=== PATIENT | female | born 1970 | race Caucasian/White ===

== ENCOUNTER 2020-01-09 06:35 | Day surgery (SDC) | payer OTHER, SELFPAY ==
[2020-01-08 11:48] VITALS: BMI 33.3
[2020-01-09 06:59] VITALS: BP 121/92; PULSE 76; RESP 18; TEMP 37; O2SAT 99
--- NOTE | 2020-01-09 07:00 | ANES.PREANE2 ---
Pre-Anesthetic Assessment Pre-Anesthetic Assessment: Height/Weight: Height 1.65 m Weight 90.718 kg Proposed Procedure: Operation Date: 01/09/20 07:45 Proposed Procedures p Colonoscopy with poss biopsy and poss polypectomy 48752 Z12.11(Not Applicable) - Juan Francisco Hill MD Was Beta Rufino taken within 24 hours: Yes Last Intake: 09:02 Social: Social History: No alcohol and No tobacco Exam: Pre-Anes Outpt Exam: alert, No oriented x 3, clear to auscultation bilaterally and regular rate & rhythm Airway: Submandibular: WNL Cervical ROM: WNL MP: 2 History/ROS: No significant complaints Pulmonary: Pulmonary: None reported CV/HEM: CV/HEM: HTN : : None reported Hepatic: Hepatic: None reported GI: GI: None reported Metabolic: Metabolic: None reported Musc/skel: Musc/skel: None reported Neuropsych: Neuropsych: None reported Anesthetic Plan: ASA status: 2 Anesthesia: MAC Risk of > 500 ml blood loss (7ml/kg in children): No Data Anesthesia Cardiac Studies: No Data to Display
[2020-01-09] MEDS: sodium chloride 0.9% 1,000 ML 30 ML IV (07:11)
[2020-01-09 07:22] LABS: OR HCG Qualitative Urine Negative (Negative)
--- NOTE | 2020-01-09 08:05 | P.HP_ITS ---
Providers/Chief Complaint Primary Care Provider: Kulwant Rueda MD Chief Complaint: colon cancer screening History of Present Illness Shellie Barbosa is a 49 year old female here for screening colonoscopy Review of Systems General: Reports: 10 or more systems reviewed and unremarkable except in HPI and below Medications/Allergies Home Medications Medication Instructions Recorded Confirmed Last Taken Type Potassium 1 tab PO DAILY 12/20/19 01/09/20 01/08/20 History atenolol 25 mg tablet 25 mg PO DAILY 12/20/19 01/09/20 01/09/20 History biotin 1 tab PO DAILY 12/20/19 01/09/20 01/08/20 History cetirizine 10 mg capsule 10 mg PO DAILY 12/20/19 01/09/20 01/08/20 History cholecalciferol (vitamin D3) 25 25 mcg PO DAILY 12/20/19 01/09/20 01/08/20 History mcg (1,000 unit) capsule cyanocobalamin (vitamin B-12) 1,000 mcg PO DAILY 12/20/19 01/09/20 01/08/20 History 1,000 mcg capsule lisinopril 20 1 tab PO BID 12/20/19 01/09/20 01/09/20 History mg-hydrochlorothiazide 12.5 mg tablet magnesium 1 tab PO DAILY 12/20/19 01/09/20 01/08/20 History Allergies Allergy/AdvReac Type Severity Reaction Status Date / Time No Known Allergies Allergy Unverified 12/20/19 09:47 Vital Signs Vitals Signs: Last Vital Signs Temp 98.6 F 01/09/20 06:59 Pulse 76 01/09/20 06:59 Resp 18 01/09/20 06:59 BP 121/92 01/09/20 06:59 Pulse Ox 99 01/09/20 06:59 Weight: Weight last 48 hrs Weight 200 lb Physical Exam Narrative: EXAM NARRATIVE: HEENT: Normocephalic Eye: Sclera /conjunctiva normal Abdomen: Soft to palpation Neurological: Oriented to place person and time Skin: Intact, no lesions appreciated on gross exam A&P Assessment and plan (1) Encounter for screening colonoscopy: The patient is scheduled for colonoscopy under MAC. The procedure risks and benefits, including infection, bleeding and bowel injury, has been explained to the patient, who has consented to the procedure. Information about the prep has been provided to the patient. Status: Acute Coding Level of Care Code Acute Sleeve Separator for Chg Fwd Diagnoses Encounter for screening colonoscopy Z12.11
[2020-01-09 08:15] VITALS: BP 104/70; PULSE 59; RESP 16; TEMP 36.7; O2SAT 100
--- NOTE | 2020-01-09 09:03 | ANE.PACU2 ---
Inpatient post-anesthesia follow up: Airway intact: Yes Vital signs: Temperature 98.1 F Pulse Rate 59 Respiratory Rate 16 Blood Pressure 104/70 Pulse Oximetry 100 Oxygen Delivery Me thod Nasal Cannula Oxygen Flow Rate 3 Fraction of Inspir ed Oxygen Hydration adequate: Yes Nausea and vomiting: No Pain level: 1 Mental status: Baseline
== END 2020-01-09 08:38 | disposition home or self-care (01) ==
PROVIDERS: PCP Family Medicine; Visit Provider Surgery
PROC: 0DJD8ZZ Inspection of Lower Intestinal Tract, Via Natural or Artificial Opening Endoscopic (ICD-10-PCS; CPT 45378; principal; 2020-01-09 07:45)
DX: Z12.11 Encounter for screening for malignant neoplasm of colon (principal); K57.30 Diverticulosis of large intestine without perforation or abscess without bleeding; I10 Essential (primary) hypertension
CPT/HCPCS: 12345; 45378; 84703; J2001; J2704

== ENCOUNTER 2020-01-22 09:33 | Outpatient (CLI) | payer OTHER, SELFPAY ==
--- NOTE | 2020-01-22 09:37 | MM_ITS ---
WS: [id number] Bilateral screening digital mammogram, 01/22/2020 Clinical Data: SCREENING Comparison: 09/16/2017, 05/24/2017, 05/22/2016, 04/23/2015. Findings: The breast parenchymal pattern shows heterogeneous density No spiculated masses or clustered calcific ations are seen. There are no secondary signs of carcinoma. MM/[id number] Impression: 1. Negative bilateral mammogram unchanged. 2. Recommend annual screening mammograms. BIRADS: 1-Negative FOLLOW UP: 1 Year Follow-up The CAD fruit checker was used.
== END 2020-01-22 09:34 | disposition home or self-care (01) ==
LOC: RADSHAW 09:36
PROVIDERS: PCP Family Medicine; Visit Provider Family Medicine
DX: Z12.31 Encounter for screening mammogram for malignant neoplasm of breast (principal)
CPT/HCPCS: 77067

== ENCOUNTER 2020-04-22 12:32 | Outpatient (CLI) | payer OTHER, SELFPAY ==
--- NOTE | 2020-04-22 12:37 | XR_ITS ---
WS: [id number] LEFT KNEE: 3 VIEW(S) TECHNIQUE: AP, oblique(s) and lateral. HISTORY: KNEE PAIN, LEFT COMPARISON: None available. No fracture or dislocation. No joint space narrowing or osteophytes. No joint effusion. No soft tissue abnormality. XR/XR knee LT 3V* [id number] IMPRESSION: Normal LEFT knee.
== END 2020-04-22 12:33 | disposition home or self-care (01) ==
LOC: RAD 12:35
PROVIDERS: PCP Family Medicine; Visit Provider Family Medicine
DX: M25.562 Pain in left knee (principal)
CPT/HCPCS: 73562

== ENCOUNTER → 2021-01-04 11:14 | Outpatient (BNVA) | payer OTHER, SELFPAY | PROVIDERS: PCP Family Medicine; Visit Provider Orthopaedic Surgery | DX: Z01.818 Encounter for other preprocedural examination (principal); Z11.52 Encounter for screening for COVID-19; Z20.822 Contact with and (suspected) exposure to COVID-19 | CPT/HCPCS: 87635 ==

== ENCOUNTER 2021-01-09 09:17 | Day surgery (SDC) | payer OTHER, SELFPAY ==
[2021-01-08 11:20] VITALS: BMI 33.3
[2021-01-09 09:28] VITALS: BP 149/87; PULSE 59; RESP 16; TEMP 36.7; O2SAT 98
[2021-01-09] MEDS: sodium chloride 0.9% 1,000 ML 30 ML IV (09:40)
--- NOTE | 2021-01-09 09:49 | ANES.PREANE2 ---
Pre-Anesthetic Assessment Pre-Anesthetic Assessment: Height/Weight: Height 1.65 m Weight 90.718 kg Temp Pulse Resp BP Pulse Ox 98.1 F 59 L 16 149/87 98 01/09/21 09:28 01/09/21 09:28 01/09/21 09:28 01/09/21 09:28 01/09/21 09:28 Preop Diagnosis: Left medial meniscal tear Proposed Procedure: Operation Date: 01/09/21 10:55 Proposed Procedures p left knee menisectomy 62354 S83.242A(Left) - Rafael Flores MD Was Beta Rufino taken within 24 hours: Yes Was Clonidine taken within 24 hours: N/A Last intake: Intake Last Liquid Date 01/08/21 Last Liquid Time 22:00 Last Solid Date 01/08/21 Last Solid Time 19:00 Social: Social History: No alcohol and No tobacco Exam: Pre-Anes Outpt Exam: alert, oriented x 3, clear to auscultation bilaterally and regular rate & rhythm Airway: Submandibular: WNL Cervical ROM: WNL MP: 2 Dentition: Full CV/HEM: CV/HEM: HTN Metabolic: Metabolic: Morbid obesity Anesthetic Plan: ASA status: 2 Anesthesia: General Risk of > 500 ml blood loss (7ml/kg in children): No Meds/Allergies Current Medications: Current Medications Generic Name Dose Route Start Last Admin Trade Name Freq PRN Reason Stop Dose Admin Sodium Chloride 1,000 mls @ 30 ml s/hr 01/09/21 09:30 01/09/21 09:40 Sodium Chloride 0.9% IV 01/10/21 09:29 30 mls/hr .Q24H JACKELIN Administration PFSH Anesthesia PFSH: Surgical History Status post colonoscopy (01/09/20) repeat in 10 years Female Reproductive History: Date of last menstrual period: 12/25/20 Data Anesthesia Cardiac Studies: No Data to Display
--- NOTE | 2021-01-09 10:25 | W.PM.OPSUD ---
Surgery/Procedure H&P Update DATE OF PROCEDURE: January 09, 2021 DATE H&P PERFORMED: 12/30/20 PREOP DIAGNOSIS: Left medial meniscal tear PLANNED PROCEDURE: Operation Date: 01/09/21 10:55 Proposed Procedures p left knee menisectomy 25744 S83.242A(Left) - Rafael Flores MD
[2021-01-09] MEDS: morphine 4 mg/mL SDV 1 mL 8 MG (11:00)
[2021-01-09 11:24] VITALS: BP 120/75; PULSE 72; RESP 20; TEMP 36.4; O2SAT 100
--- NOTE | 2021-01-09 11:28 | PM.OP ---
Operative Report Date of procedure: January 09, 2021 Pre-op Diagnosis: Left medial meniscal tear Post-op diagnosis: other Post-op Diagnosis: Normal left medial meniscus Grade II chondromalacia medial femoral condyle Post-op Findings: As above Procedure Done: Diagnostic arthroscopy left knee Pathology: none sent Surgeon: Rafael Flores Anesthesia: General Estimated blood loss (mL): 5 Findings: The patient had generalized softening and fissures over the medial femoral condyle but no unstable flaps to suggest debridement. Her medial meniscus was healthy. Her lateral compartment and patellofemoral compartment were pristine. Her central stabilizing ligaments were intact Brief History: Ms. Barbosa is a 50-year-old female with chronic left knee pain and MRI suggesting medial meniscal tearing. He was taken to the operating room for diagnostic arthroscopy to verify pathology and offer potential medial meniscectomy Procedure: The patient was taken to the operating room and given a general anesthesia. She is prepped and draped the supine position with a tourniquet on the left thigh. The knee was infiltrated with 30 cc of 0.5% Marcaine with epi and 4 mg of morphine. A timeout was performed. The knee was entered through a standard inferior medial and inferior lateral portal. The diagnostic portion arthroscopy was performed. Essentially the only abnormal findings identified were chondromalacia over the medial femoral condyle. There were essentially no unstable flaps or fissures to benefit from debridement. The knee was irrigated with saline. Portals were closed with 3-0 Prolene. Sterile dressings were applied. The patient was extubated and taken to the room in stable condition.
[2021-01-09 11:30] VITALS: BP 111/66; PULSE 65; RESP 14; O2SAT 100
[2021-01-09 11:35] VITALS: BP 121/77; PULSE 64; RESP 16; TEMP 36.8; O2SAT 95
[2021-01-09 11:39] VITALS: BP 114/71; PULSE 64; RESP 18; TEMP 36.8; O2SAT 98
[2021-01-09 12:12] VITALS: BP 122/70; PULSE 73; RESP 16; TEMP 36.7; O2SAT 99
--- NOTE | 2021-01-09 14:42 | ANE.PACU2 ---
Inpatient post-anesthesia follow up: Airway intact: Yes Vital signs: Temperature 98.0 F Pulse Rate 73 Respiratory Rate 16 Blood Pressure 122/70 Pulse Oximetry 99 Oxygen Delivery Me thod Room Air Oxygen Flow Rate 6 Fraction of Inspir ed Oxygen Hydration adequate: Yes Nausea and vomiting: No Pain level: 2 Mental status: Baseline
== END 2021-01-09 12:20 | disposition home or self-care (01) ==
PROVIDERS: PCP Family Medicine; Visit Provider Orthopaedic Surgery
PROC: (CPT 29870; principal; 2021-01-09 10:45)
DX: S83.242A Other tear of medial meniscus, current injury, left knee, initial encounter (principal); X50.1XXA Overexertion from prolonged static or awkward postures, initial encounter; Y92.002 Bathroom of unspecified non-institutional (private) residence as the place of occurrence of the external cause; M94.262 Chondromalacia, left knee; I10 Essential (primary) hypertension; E66.01 Morbid (severe) obesity due to excess calories; Z68.33 Body mass index [BMI] 33.0-33.9, adult
CPT/HCPCS: 29870; J0690; J1100; J1885; J2270; J2405; J2704; J3010; J3490; J7030

== ENCOUNTER → 2021-02-11 10:09 | Outpatient (BNVA) | payer OTHER, SELFPAY | PROVIDERS: PCP Family Medicine; Visit Provider Nurse Practitioner Family | DX: Z20.822 Contact with and (suspected) exposure to COVID-19 (principal) | CPT/HCPCS: 87635 ==

== ENCOUNTER 2021-02-15 07:18 | Outpatient (CLI) | payer OTHER, SELFPAY ==
[2021-02-15 07:20] VITALS: BP 124/85; PULSE 72; RESP 18; TEMP 36.6; O2SAT 95; BMI 33.3
[2021-02-15 08:05] VITALS: BP 135/89; PULSE 69; RESP 16; O2SAT 96
[2021-02-15 09:12] VITALS: BP 133/83; PULSE 67; RESP 17; TEMP 36.4
== END 2021-02-15 07:19 | disposition home or self-care (01) ==
LOC: OPS 07:19
PROVIDERS: PCP Family Medicine; Visit Provider Family Medicine
DX: U07.1 COVID-19 (principal)
CPT/HCPCS: 96365

== ENCOUNTER 2022-08-24 13:11 | Outpatient (CLI) | payer OTHER, SELFPAY ==
--- NOTE | 2022-08-24 13:27 | XRR_ITS ---
PROCEDURE INFORMATION: Exam: XR Right Shoulder Exam date and time: 08/24/2022 1:29 PM Age: 52 years old Clinical indication: Pain; Right; Patient HX: Tore RT shoulder up about 4 years ago and has hurt every since; Additional info: Right shoulder pain TECHNIQUE: Imaging protocol: Radiologic exam of the Right shoulder. Views: 2 or more views. COMPARISON: CR XR shoulder RT min 2V* [id number] 04/19/2018 9:19 AM FINDINGS: Bones/joints: Osseous structures are intact. Negative for fracture. Joint spaces are preserved. Soft tissues: Normal. XR/XR shoulder RT min 2V* [id number] IMPRESSION: No acute findings.
== END 2022-08-24 13:12 | disposition home or self-care (01) ==
LOC: RAD 13:14
PROVIDERS: PCP Family Medicine; Visit Provider Family Medicine
DX: M25.511 Pain in right shoulder (principal)
CPT/HCPCS: 73030

== ENCOUNTER → 2022-08-26 08:04 | Outpatient (BNVA) | payer OTHER, SELFPAY | PROVIDERS: PCP Family Medicine; Visit Provider Family Medicine | DX: R07.9 Chest pain, unspecified (principal); S83.242A Other tear of medial meniscus, current injury, left knee, initial encounter; M25.511 Pain in right shoulder; E11.9 Type 2 diabetes mellitus without complications; Z51.81 Encounter for therapeutic drug level monitoring; Z00.00 Encounter for general adult medical examination without abnormal findings; E55.9 Vitamin D deficiency, unspecified; Z13.220 Encounter for screening for lipoid disorders; E53.8 Deficiency of other specified B group vitamins; X58.XXXA Exposure to other specified factors, initial encounter | CPT/HCPCS: 80053; 80061; 82306; 82607; 83036; 85025 ==

== ENCOUNTER 2022-09-25 12:10 | Outpatient (CLI) | payer OTHER, SELFPAY ==
--- NOTE | 2022-09-25 16:00 | MR_ITS ---
WS: [id number] EXAMINATION: MR shoulder RT wo con* [id number] ORDER DATE: 09/25/2022 12:27 PM COMPARISON: None. HISTORY: Right shoulder pain CONTRAST: None. TECHNIQUE: Axial T2 STAR, coronal proton density fat sat, sagittal T2 fat sat, sagittal proton densit y fat sat, axial proton density fat sat, coronal T2 fat sat, and coronal T1 performed. After contrast , axial T1 fat sat, coronal T1 fat sat, and sagittal T1 fat sat were performed. FINDINGS: Mild degenerative arthritis AC joint with mild edema. Slight subacromial spurring. Slight impingement on the distal supraspinatus with mild subacromial narrowing. Subchondral cystic changes at the great er tuberosity. Normal supraspinatus. Normal infraspinatus. Normal teres minor and subscapularis. Normal bone marrow signal in the glenoid. Somewhat diminutive biceps tendon in the bicipital groove. Normal intra-articu lar biceps tendon. Labrum appears grossly intact. MR/MR shoulder RT wo con* [id number] IMPRESSION: 1. Mild degenerative arthritis at the AC joint with mild fluid and edema. Suba cromial spurring with slight impingement on the distal supraspinatus. 2. Rotator cuff is intact. 3. Somewhat diminutive biceps tendon in the bicipital groove appears intact. 4. Intra-articular biceps tendon appears intact. 5. No other acute findings.
== END 2022-09-25 12:11 | disposition home or self-care (01) ==
LOC: RAD 12:15
PROVIDERS: PCP Family Medicine; Visit Provider Family Medicine
DX: M19.011 Primary osteoarthritis, right shoulder (principal)
CPT/HCPCS: 73221

== ENCOUNTER 2023-04-02 10:53 | Emergency (ER) | payer OTHER, SELFPAY ==
[2023-04-02] VITALS (7 sets, daily range): BP systolic 117–149; BP diastolic 58–86; PULSE 76–96; RESP 18; TEMP 37.1; O2SAT 96–99; BMI 33.3
[2023-04-02 11:43] LABS: Basophils # 0.1 10^3/uL (0.0-0.1); Basophils % 0.5 %; Eosinophils # 0.2 10^3/uL (0.0-0.8); Eosinophils % 1.4 %; Hematocrit 39.4 % (36-47); Lymphocytes # 1.5 10^3/uL (0.8-4.8); Lymphocytes % 12.9 %; Mean Corpuscular HGB Conc 32.7 g/dL (30-55); Mean Corpuscular Hemoglobin 28.3 pg (27-33); Mean Corpuscular Volume 86.4 fl (85-98); Mean Platelet Volume 10.2 fL (7.4-10.4); Neutrophils # 8.59 10^3/uL (1.8-7.7); Neutrophils % 75.8 %; Nucleated Red Blood Cells % 0 %; Platelet Count 259 10^3/cmm (157-399); Red Blood Count 4.56 10^6/uL (3.85-5.65); Red Cell Distribution Width 12.6 % (12.1-15.1); White Blood Count 11.33 10^3/uL (3.29-11.43)
[2023-04-02 12:01] LABS: Alanine Aminotransferase 13 U/L (0-33); Albumin Level 4.4 g/dL (3.5-5.2); Alkaline Phosphatase 54 U/L (35-105); Anion Gap 15.1 (5-19); Aspartate Amino Transferase 14 U/L (0-32); Blood Urea Nitrogen 13 mg/dL (6-20); Carbon Dioxide 27 mmol/L (22-29); Chloride 98 mmol/L (98-107); Globulin 3.2 g/dL (1.3-4.6); Glomerular Filtration Rate 65.2 mL/min (90-130); Glucose 224 mg/dL (65-115); Lipase 33 U/L (13-60); Osmolality Calculated 289 mOsm/kg (285-295); Potassium 4.1 mmol/L (3.5-5.1); Sodium 136 mmol/L (136-145); Total Bilirubin 0.5 mg/dL (0.15-1.2); Total Protein 7.6 g/dL (6.6-8.7)
[2023-04-02] MEDS: sodium chloride 0.9% 1,000 ML 999 ML IV (15:31)
[2023-04-02] MEDS: ketorolac 30 mg/mL INJ IVP (15:32)
[2023-04-02 15:39] LABS: Add Urine Microscopic? NO; Charge for UA Resulting for Rev
--- NOTE | 2023-04-02 15:49 | ED_ITS ---
HPI - Abdominal Pain General: Chief Complaint: Abdominal Pain Stated Complaint: left sided abdominal pain Time Seen by Provider: 04/02/23 15:06 Source: patient Mode of arrival: ambulatory Limitations: no limitations History of Present Illness: Patient presents to the emergency department for evaluation treatment of left lower quadrant pain. Patient states that for about a week now she has been having off-and-on pain in the left lower quadrant with severe worsening today. Patient states she originally thought it was just gas but, indicates she does have a history of ovarian cyst. She denies a history of kidney stones. She denies diarrhea, nausea, or vomiting. She has not noticed any fevers. She denies flank pain or mid back pain. She did have pain in her abdomen while she urinated but no dysuria. No signs of hematuria. Patient reports that that being bent over provides her pain relief. Patient has had a colonoscopy in the past. No abnormalities and no diagnoses of diverticulosis. Review of Systems General: Reports: 10 or more systems reviewed and unremarkable except in HPI and below PFSH ED PFSH: Surgical History Status post colonoscopy (01/09/20) repeat in 10 years Family History Sister Chronic kidney disease (CKD) after being removed from dialysis Father Pacemaker Social History Smoking and tobacco status: former smoker Alcohol intake: current Alcohol intake frequency: holidays/special occasions only Substance/Drug Use: never Physical Exam Const: COMMON NORMALS: no acute distress, patient oriented x3 and alert HENMT: COMMON NORMALS: normocephalic, atraumatic, hearing grossly normal bilaterally and moist oral mucous membranes HEAD & SCALP: normocephalic and atraumatic Eye: COMMON NORMALS: Equal, round and reactive pupils present, EOMs intact bilaterally and conjunctivae normal CONJUNCTIVA: Yes conjunctivae normal PUPIL: Yes Equal, round and reactive pupils present Neck/C-Spine: COMMON NORMALS: full ROM and no JVD Lymph: LYMPHATIC: no lymphadenopathy noted Resp: COMMON NORMALS: normal respiratory effort, No retractions, No use of accessory muscles and clear to auscultation bilaterally AUSCULTATION: clear to auscultation bilaterally Cardio: COMMON NORMALS: no JVD, regular rate and regular rhythm RATE: regular rate RHYTHM: regular rhythm GI: OTHER: Left lower quadrant pain. Abdomen is soft. : COMMON NORMALS: Yes no CVA tenderness BLADDER/KIDNEY EXAM: Yes no CVA tenderness Back/Pelvis: COMMON NORMALS: no CVA tenderness, no thoracic nor lumbar tenderness and thoraco-lumbar ROM normal Extremity: COMMON NORMALS: normal to inspection, full ROM and capillary refill normal Neuro: COMMON NORMALS: patient oriented x3 SENSORIUM/ORIENTATION: Yes alert Psych: COMMON NORMALS: mental status grossly normal, Normal thought process present, cooperative, normal affect and activity/motor behavior normal THOUGHT PROCESS: Normal thought process present Skin: COMMON NORMALS: no rashes or lesions noted and no wounds GENERAL SKIN EXAM: no rashes or lesions noted Course Vital Signs: Vital signs: Vital Signs Temperature 98.8 F 04/02/23 11:45 Pulse Rate 86 04/02/23 16:00 Respiratory Rate 18 04/02/23 17:57 Blood Pressure 146/86 04/02/23 16:00 Pulse Oximetry 97 04/02/23 16:00 Oxygen Delivery Me thod Room Air 04/02/23 16:00 MDM - Abdominal Pain Medical Decision Making Initial lab work showed no elevation in white blood cell count and urine had no blood. Because there is usually elevated WBCs with infection and blood in the urine with a kidney stone, we proceeded on with an Ultrasound to look for cysts. However, initial evaluation of the scans did not show torsion or cyst to cause pain that significant. Patient originally refused narcotics for pain. She got toradol but still had pain. Offered pain medication again after US and she agreed. We then proceeded on with a CT scan. Scan showed an area of the descending colon showing signs of diverticulitis. No signs of perforation at this time. We will start treatment with antibiotics to treat diverticulitis. I am also giving antinausea medication and pain medications. She was warned she may still have pain for a couple days. She was given an informational hand out about diverticulitis to look over and return precations specified. She is asked to follow up with here PCP next wednesday for another recheck of her symptoms. Jhonny donato verbalized understanding and agreement to the treatment plan. Differential Diagnosis Likely abdominal pain, calculus of kidney, diverticulitis, gastroenteritis and small bowel obstruction; Unlikely acute appendicitis or endometriosis (ovarian torsion, ovarian cyst) Lab Data 04/02/23 11:30 04/02/23 11:30 Labs/Radiology: Radiology Impressions Abdomen/Pelvis CT 04/02/23 17:37 IMPRESSION: 1. Scattered colonic diverticula. Changes consistent with moderate diverticulitis in the distal descending colon. 2. Incidental/nonacute findings are listed in the report. Laboratory Results WBC 11.33 10^3/uL (3.29-11.43) 04/02/23 11:30 RBC 4.56 10^6/uL (3.85-5.65) 04/02/23 11:30 Hgb 12.90 g/dL (11.27-16.99) 04/02/23 11:30 Hct 39.4 % (36-47) 04/02/23 11:30 MCV 86.4 fl (85-98) 04/02/23 11:30 MCH 28.3 pg (27-33) 04/02/23 11:30 MCHC 32.7 g/dL (30-55) 04/02/23 11:30 RDW 12.6 % (12.1-15.1) 04/02/23 11:30 Plt Count 259 10^3/cmm (157-399) 04/02/23 11:30 MPV 10.2 fL (7.4-10.4) 04/02/23 11:30 Neut % (Auto) 75.8 % 04/02/23 11:30 Lymph % (Auto) 12.9 % 04/02/23 11:30 Burnett % (Auto) 9.0 % 04/02/23 11:30 Eos % (Auto) 1.4 % 04/02/23 11:30 Baso % (Auto) 0.5 % 04/02/23 11:30 Neut # (Auto) 8.59 10^3/uL (1.8-7.7) H 04/02/23 11:30 Lymph # (Auto) 1.5 10^3/uL (0.8-4.8) 04/02/23 11:30 Burnett # (Auto) 1.0 10^3/uL (0.2-0.9) H 04/02/23 11:30 Eos # (Auto) 0.2 10^3/uL (0.0-0.8) 04/02/23 11:30 Baso # (Auto) 0.1 10^3/uL (0.0-0.1) 04/02/23 11:30 Nucleated RBC % (auto) 0 % 04/02/23 11:30 Nucleated RBCs # 0.0 /100WBC 04/02/23 11:30 Sodium 136 mmol/L (136-145) 04/02/23 11:30 Potassium 4.1 mmol/L (3.5-5.1) 04/02/23 11:30 Chloride 98 mmol/L (98-107) 04/02/23 11:30 Carbon Dioxide 27 mmol/L (22-29) 04/02/23 11:30 Anion Gap 15.1 (5-19) 04/02/23 11:30 BUN 13 mg/dL (6-20) 04/02/23 11:30 Creatinine 0.9 mg/dL (0.5-0.9) 04/02/23 11:30 GFR Calculation 65.2 mL/min (90-130) L 04/02/23 11:30 Glucose 224 mg/dL (65-115) H 04/02/23 11:30 Calculated Osmolality 289 mOsm/kg (285-295) 04/02/23 11:30 Calcium 10.0 mg/dL (8.5-10.5) 04/02/23 11:30 Total Bilirubin 0.5 mg/dL (0.15-1.2) 04/02/23 11:30 AST 14 U/L (0-32) 04/02/23 11:30 ALT 13 U/L (0-33) 04/02/23 11:30 Alkaline Phosphatase 54 U/L (35-105) 04/02/23 11:30 Total Protein 7.6 g/dL (6.6-8.7) 04/02/23 11:30 Albumin 4.4 g/dL (3.5-5.2) 04/02/23 11:30 Globulin 3.2 g/dL (1.3-4.6) 04/02/23 11:30 Lipase 33 U/L (13-60) 04/02/23 11:30 HCG, Qual Negative (Negative) 04/02/23 14:45 Urine Color Yellow (Yellow) 04/02/23 14:45 Urine Appearance Clear (CLEAR) 04/02/23 14:45 Urine pH 5 (5-7) 04/02/23 14:45 Ur Specific [place] 1.015 (1.005-1.030) 04/02/23 14:45 Urine Protein Neg (Negative) 04/02/23 14:45 Urine Glucose (UA) 1+ (Normal) H 04/02/23 14:45 Urine Ketones Negative (Negative) 04/02/23 14:45 Urine Blood Neg (Negative) 04/02/23 14:45 Urine Nitrate Negative (Negative) 04/02/23 14:45 Urine Bilirubin Neg (Negative) 04/02/23 14:45 Urine Urobilinogen Norm mg/dL (Negative) 04/02/23 14:45 Ur Leukocyte Esterase Negative (Negative) 04/02/23 14:45 All radiology interpretation(s) finalized by discharge Discharge Plan Discharge Patient Disposition: Home Clinical Impression: Diverticulitis Condition: Stable Prescriptions: New ondansetron 4 mg tablet,disintegrating 4 mg PO Q8H 5 Days Qty: 15 0RF ciprofloxacin HCl 500 mg tablet 500 mg PO Q12H Qty: 14 0RF metronidazole 500 mg tablet 500 mg PO Q8H 7 Days Qty: 21 0RF No Action cetirizine 10 mg capsule 10 mg PO QAM potassium gluconate 595 mg (99 mg) Tablet 595 mg PO QAM biotin 2,500 mcg Capsule 2,500 mcg PO DAILY magnesium oxide 400 mg magnesium Tablet 400 mg PO QAM Beet Root 1 tab PO DAILY Himalaya Organic Arjuna 1 tab PO DAILY Hormone Balance 1 tab PO BID lisinopril-hydrochlorothiazide 20-12.5 mg tablet 1 tab PO BID atenolol 25 mg tablet 25 mg PO QAM Vitamin B-12 500 mcg tablet 500 mcg PO QAM Discharge Orders: Discharge ED (Routine); Ordered 04/02/23 Ordered By: Macy Howard Referrals: Kulwant Rueda MD [Primary Care Provider] - Discharge Diet: Advance as tolerated Discharge Activity: Increase activity as tolerated Patient Instructions: Diverticulitis (ED), Opioid Safety Activity Restrictions/Additional Instructions: Labs today are stable. you had no elevated white blood cell count and no blood/infection in your urine. We then checked for an ovarian cyst but initial reads showed no abnormalities. Because you were still in such pain, we did a CT scan and found your distal colon showed signs of diverticulitis without perforation. We will treat with antibiotics, antinausea medication and pain medication. You may still experience pain for a couple days until the antibiotics begin to work. Follow up with your PCP at the end of next week. However, if you develop fever, vomiting without ability to drink fluids of take your medications, develop bloody stools or have severe worsening of pain acutely.... come back to the ER. Coding Level of Care Code ED Cork Insulator for Josesito Dempsey
[2023-04-02 16:00] LABS: Bilirubin Urine Neg (Negative); Blood Urine Neg (Negative); Glucose Urine UA 1+ (Normal); HCG Qualitative Urine. Negative (Negative); Ketones Urine Negative (Negative); Leukocyte Esterase Urine Negative (Negative); Nitrate Urine Negative (Negative); Protein Urine Neg (Negative); Specific Gravity, Urine 1.015 (1.005-1.030); Urine Appearance Clear (CLEAR); Urine Color Yellow (Yellow); Urobilinogen Urine Norm (Negative); pH Urine 5 (5-7)
--- NOTE | 2023-04-02 16:02 | USR_ITS ---
PROCEDURE INFORMATION: Exam: US Pelvis, Transvaginal Exam date and time: 04/02/2023 5:02 PM Age: 53 years old Clinical indication: Pelvic pain; Additional info: Llq pain, HX of cysts, no wbc, ua neg for blood or bacteria TECHNIQUE: Imaging protocol: Real-time transvaginal pelvic ultrasound with image documentation. Transvaginal imaging was used for better evaluation of the endometrium, adnexa, and/or cervix. COMPARISON: No relevant prior studies available. FINDINGS: Uterus: The uterus measures 8.1 x 4.9 x 6.3 cm. No myometrial abnormality. The endometrium is unremarkable. Endometrium measures 3.1 mm. Cervix: Single Nabothian cyst in the cervix. Right ovary/adnexa: The right ovary is not definitely visualized. No abnormal right adnexal masses. Left ovary/adnexa: The left ovary is unremarkable. The left ovary measures 2.7 x 2.2 x 1.8 cm. Normal arterial and venous waveforms on Doppler imaging in the left ovary. No abnormal left adnexal masses. Intraperitoneal space: No free fluid in the pelvis. US/US transvaginal [id number] IMPRESSION: The right ovary is not definitely visualized. No abnormal right adnexal masses. No other acute abnormality in the pelvis.
--- NOTE | 2023-04-02 17:37 | CTR_ITS ---
PROCEDURE INFORMATION: Exam: CT Abdomen And Pelvis With Contrast Exam date and time: 04/02/2023 5:44 PM Age: 53 years old Clinical indication: Abdominal pain; Localized; Left lower quadrant (llq); Patient HX: C/O llq pain; Additional info: Llq pain, no obvious lab findings. US neg for torsion or cyst TECHNIQUE: Imaging protocol: Computed tomography of the abdomen and pelvis with contrast. Sagittal and coronal reformatted images were created and reviewed. Radiation optimization: All CT scans at this facility use at least one of these dose optimization techniques: automated exposure control; mA and/or kV adjustment per patient size (includes targeted exams where dose is matched to clinical indication); or iterative reconstruction. Contrast material: OMNI 350; Contrast volume: 100 ml; Contrast route: INTRAVENOUS (IV); REPORTING DATA: Count of CT and Cardiac NM exams in prior 12 months: This patient has received 0 known CTs and 0 known cardiac nuclear medicine studies in the 12 months prior to the current study. COMPARISON: US pelvic complete* [id number] 04/02/2023 5:02 PM RADIATION DOSE METRICS: Total DLP (mGy-cm): 927.58 FINDINGS: Lungs: Dependent atelectasis in the visualized lungs. Calcified granulomas in the medial left lower lobe. Pleural spaces: No pleural effusion. Heart: Visualized cardiac chambers are unremarkable. Liver: Single calcified granuloma in the liver. Gallbladder and bile ducts: Patient has had a previous cholecystectomy. Dilatation of the biliary ducts, not unexpected in a patient who has had a prior cholecystectomy. Pancreas: The pancreas is unremarkable. No pancreatic ductal dilatation. Spleen: The spleen is unremarkable. Adrenal glands: The right and left adrenal glands are unremarkable. Kidneys and ureters: The right and left kidneys are unremarkable. The right and left ureters are unremarkable. Stomach and bowel: No acute abnormality in the stomach. No acute abnormality in the small bowel. Few small enteroliths in the distal small bowel. Scattered diverticula throughout the entire colon. Moderate wall thickening of the distal descending colon with surrounding pericolonic inflammatory change and fluid. Appendix: Appendix not definitely visualized. No inflammatory changes in the pericecal region however. Intraperitoneal space: No free intraperitoneal air. No ascites. No loculated fluid collections to suggest an abscess. Vasculature: Mild atherosclerotic changes in the visualized arteries. No evidence for aortic aneurysm or aortic dissection. Hepatic veins, portal veins, splenic vein, and SMV are patent. Lymph nodes: No lymphadenopathy. Urinary bladder: Unremarkable as visualized. Reproductive: The uterus is unremarkable. The right and left ovaries are unremarkable. Bones/joints: No acute fracture. Soft tissues: No acute abnormality in the extra-abdominal soft tissues. CT/CT abdomen pelvis w con* [id number] IMPRESSION: 1. Scattered colonic diverticula. Changes consistent with moderate diverticulitis in the distal descending colon. 2. Incidental/nonacute findings are listed in the report.
[2023-04-02] MEDS: iohexol 350 mg/mL 500 mL Btl (per mL) IV (17:47)
[2023-04-02] MEDS: metoclopramide 5 mg/mL SDV 2 mL 10 MG IVP (17:57)
[2023-04-02] MEDS: morphine 4 mg/mL SDV 1 mL IVP (17:57)
[2023-04-02] MEDS: ciprofloxacin 500 mg Tablet PO (18:37)
[2023-04-02] MEDS: metroNIDAZOLE 500 MG Tablet PO (18:37)
== END 2023-04-02 18:45 | disposition home or self-care (01) ==
PROVIDERS: Emergency Medicine; Emergency Provider Physician Assistant; PCP Family Medicine
DX: K57.92 Diverticulitis of intestine, part unspecified, without perforation or abscess without bleeding (principal); Z87.891 Personal history of nicotine dependence
CPT/HCPCS: 36415; 74177; 76830; 80053; 81003; 81025; 83690; 85025; 96361; 96374; 96375; 99285; J1885; J2270; J2765; J7030; Q9967

== ENCOUNTER 2023-05-05 07:26 | Outpatient (CLI) | payer OTHER, SELFPAY ==
[2023-05-05 07:42] VITALS: BMI 32.3
--- NOTE | 2023-05-05 07:44 | ECG_ITS ---
[facility] Test Date: 2023-05-05 Pat Name: Shellie Barbosa Department: Room: Gender: Female Vp Lab: : 1970 Requested By: Kulwant Germain Order Number: [id number] Jansen MD: Gudelia Curtis M.D. Interpretive Statements Name of study: Lexiscan sestamibi stress test Indication: Chest pain PROCEDURE: At the baseline, the blood pressure was 114/89 mm Hg with a heart rate of 58 bpm. The electrocardiogram showed sinus bradycardia. Non specific T wave changes. ??? The Lexiscan was infused over a period of 20 seconds. A total of 0.4 milligrams of Lexiscan was infused. The stress phase was continued for a total of 5 minutes. Heart rate at the end of the stress phase was 79 bpm with a blood pressure of 121/85 mm Hg. The EKG at the peak infusion revealed no significant ST-T wave changes.. ??? Sestamibi was injected 20 seconds after the Lexiscan infusion. ??? Blood pressure at the end of the recovery phase was 123/84 mm Hg with a heart rate of 77 beats per minute. ??? CONCLUSION: 1. No significant EKG changes with the LexiScan infusion. 2. No LexiScan induced chest pain or cardiac arrhythmia. 3. Normal blood pressure and heart rate response. 4. Sestamibi/sestamibi perfusion scan pending; see separate report. Electronically Signed On 05-17-2023 13:54:02 CHARGE ENTRY by Gudelia Curtis M.D. [id number]
--- NOTE | 2023-05-05 07:45 | NMCV_ITS ---
NM quentin perf SPECT r/s* [id number] Shellie Barbosa Age: 53 Gender: F : 1970 Exam Date: 05/05/2023 08:42 Ordering Phys: Kulwnat Rueda MD Technologist: RYAN Oates Exam Location: [facility] Indications: CHEST PAIN STRESS TEST [facility] IMAGE PROTOCOL Rest/Stress 1 Lexiscan Day Radiopharmaceutical Dose (mCi) Administration Site Administered by Rest: Tc-99m 10.8 IV RYAN Ma Sestamibi Stress:Tc-99m 32.1 IV RYAN Ma Sestamibi Rest: 05-May-2023 60 Discovery 630 Stress: 05-May-2023 30 Discovery 630 0.4mg Lexiscan. Images obtained in supine and prone position. SPECT RESULTS Technical Quality: Excellent Raw Data Analysis: Normal Image Corrections: No attenuation or motion correction applied Summed Stress Score: 0 Summed Rest Score: 0 Summed Difference Score: 0 PERFUSION FINDINGS SPECT images demonstrate homogeneous tracer distribution throughout the myocardium. FUNCTIONAL RESULTS (calculated via Gated SPECT) Stress Image LV EF (%): 72 Stress EDV (mL):65 TID: 1.03 Stress ESV (mL):18 FUNCTIONAL FINDINGS: The left ventricle is normal in size. Transient Ischemia Dilatation of 1. The left ventricular ejection fraction is normal with a value of 72%. There is normal left ventricular wall thickening. IMPRESSIONS 1. Myocardial perfusion imaging is normal. 2. Overall left ventricular systolic function is normal without regional wall motion abnormalities, LVEF=72%. 3. EKG portion of the study will be reported separately. 4. Scan indicates low risk for cardiac events. Gudelia Curtis MD (Electronically Signed) Final Date: 05 May 2023 16:05 S
[2023-05-05] MEDS: regadenoson 0.4 Mg/5 ml Syringe IVP (09:32)
[2023-05-05 11:37] VITALS: BP 144/68; PULSE 72
== END 2023-05-05 07:27 | disposition home or self-care (01) ==
LOC: CDL 07:29
PROVIDERS: PCP Family Medicine; Visit Provider Family Medicine
DX: R07.9 Chest pain, unspecified (principal)
CPT/HCPCS: 36415; 78452; 93017; 96374; A9500; J2785

== ENCOUNTER 2023-05-18 06:35 | Outpatient (CLI) | payer OTHER, SELFPAY ==
[2023-05-18] MEDS: iohexol 350 mg/mL 500 mL Btl (per mL) IV (07:20)
--- NOTE | 2023-05-18 07:30 | CT_ITS ---
WS: [id number] CT ABDOMEN AND PELVIS WITH CONTRAST HISTORY: Persistent LLQ pain after diverticulitis TECHNIQUE: Imaging performed of the abdomen and pelvis with IV contrast. Single phase imaging of the abdomen. Coronal and sagittal reformats are submitted. All CT scans at [facility] use at [address] one of these dose optimization techniques: automated exposure control; mA and/or kV adjustment per patient size (includes targeted exams where dose is matched to clinical indication); or iterative re construction. IV CONTRAST: Omnipaque 350; 100 mL IV. Oral contrast: No DLP: 588.26 mGy.cm COMPARISON: 04/02/2023 Lower thorax: Lung bases are clear. Heart is normal size. Small hiatal hernia. Liver/biliary system: Mild hepatic steatosis along the falciform ligament. Otherwise negative. No giovanny e duct dilatation. No mass. Gallbladder: Prior cholecystectomy. Pancreas: Normal size pancreas and pancreatic duct. No adjacent inflammation. Spleen: Normal size spleen. No mass or infarct. Adrenal glands: Normal. Right kidney: Normal. Left kidney: Normal. Aorta: Normal. Lymphadenopathy: LEFT distal paraesophageal lymph node at 14 mm unchanged since 2016. No adenopathy. Free fluid: None. GI tract: Nondistended stomach. No small bowel obstruction. Moderate diffuse constipation. Appendix i s not visualized. No secondary findings of appendicitis. Pericolonic inflammation in the descending a nd sigmoid colon described on the prior study is significantly improved. There is still mild wall thi ckening and slight narrowing of the lumen involving the proximal sigmoid. There is an adjacent large diverticulum measuring 1.5 cm at this location. Abdominal wall: Unremarkable abdominal wall. No hernia. Pelvis: No free fluid or adenopathy within the pelvis. Bones: Unremarkable. IMPRESSION: 1. Significant improvement in the acute diverticulitis described on 04/02/2023. 2. Mild luminal narrowing and submucosal thickening remains in the proximal sigmoid with a large adj acent diverticulum. Significant improvement since the prior study. 3. No abscess or adenopathy or free fluid. 4. Prior cholecystectomy.
== END 2023-05-18 06:36 | disposition home or self-care (01) ==
LOC: RAD 06:35
PROVIDERS: PCP Family Medicine; Visit Provider Family Medicine
DX: K57.32 Diverticulitis of large intestine without perforation or abscess without bleeding (principal); R10.32 Left lower quadrant pain; K57.30 Diverticulosis of large intestine without perforation or abscess without bleeding
CPT/HCPCS: 74177; Q9967

== ENCOUNTER → 2023-08-11 13:02 | Outpatient (BNVA) | payer OTHER, SELFPAY | PROVIDERS: PCP Family Medicine; Visit Provider Family Medicine | DX: E03.9 Hypothyroidism, unspecified (principal); E11.9 Type 2 diabetes mellitus without complications; M25.50 Pain in unspecified joint; Z51.81 Encounter for therapeutic drug level monitoring | CPT/HCPCS: 80053; 83036; 84439; 84443; 85025; 85651; 86038; 86141 ==

== ENCOUNTER 2023-12-30 12:15 | Outpatient (CLI) | payer OTHER, SELFPAY ==
--- NOTE | 2023-12-30 12:15 | MR_ITS ---
WS: [id number] MRI LEFT KNEE NONCONTRAST TECHNIQUE: Axial PD, coronal PD fat sat, coronal PD, sagittal PD, and sagittal PD fat-sat images obta ined. CLINICAL INFORMATION: left knee pain after climbing up some rocks COMPARISON: None. FINDINGS: Distal quadriceps and patellar tendons are intact. Normal ACL and PCL. Mild chondromalacia patella. M edial and lateral collateral ligaments are intact. Fibular head appears normal. Normal popliteal omega a. Small varicosities in the popliteal fossa. Small tear involving the posterior horn medial meniscus extending to the articular surface. Medial an d lateral meniscus are otherwise intact. Moderate chondromalacia medial joint compartment with a small amount of subchondral edema in the femo ral condyle. No other acute findings. MR/MR knee LT wo con* [id number] IMPRESSION: 1. ACL and PCL are intact. 2. Small tear involving the posterior horn medial meniscus extending to articu lar surface. 3. Mild chondromalacia patella. 4. Moderate chondromalacia medial joint compartment with a small amount of sub chondral edema in the femoral condyle. Outbridge grading: grade IV: full-thickness cartilage loss with underlying bone reactive changes
== END 2023-12-30 12:16 | disposition home or self-care (01) ==
PROVIDERS: PCP Family Medicine; Visit Provider Clinical Nurse Specialist Adult Health
DX: S83.242A Other tear of medial meniscus, current injury, left knee, initial encounter (principal); M25.562 Pain in left knee; M22.42 Chondromalacia patellae, left knee; Y99.9 Unspecified external cause status
CPT/HCPCS: 73721

== ENCOUNTER → 2024-01-04 09:22 | Outpatient (BNVA) | payer OTHER, SELFPAY | PROVIDERS: PCP Family Medicine; Visit Provider Nurse Practitioner | DX: M17.12 Unilateral primary osteoarthritis, left knee; S83.232A Complex tear of medial meniscus, current injury, left knee, initial encounter; X50.9XXA Other and unspecified overexertion or strenuous movements or postures, initial encounter | CPT/HCPCS: 73560; 73565 ==

== ENCOUNTER 2024-01-20 16:45 | Outpatient (CLI) | payer OTHER, SELFPAY ==
[2024-01-20 17:58] LABS: Hematocrit 41.6 % (36-47); Mean Corpuscular HGB Conc 33.4 g/dL (30-55); Mean Corpuscular Volume 83.7 fl (85-98); Mean Platelet Volume 10.7 fL (7.4-10.4); Platelet Count 274 10^3/cmm (157-399); Red Blood Count 4.97 10^6/uL (3.85-5.65); Red Cell Distribution Width 13.3 % (12.1-15.1); White Blood Count 6.76 10^3/uL (3.29-11.43)
[2024-01-20 18:50] LABS: Anion Gap 16.7 (5-19); Blood Urea Nitrogen 14 mg/dL (6-20); Calcium 10.2 mg/dL (8.5-10.5); Carbon Dioxide 27 mmol/L (22-29); Chloride 100 mmol/L (98-107); Glomerular Filtration Rate 86.9 mL/min (90-130); Glucose 154 mg/dL (65-115); Osmolality Calculated 294 mOsm/kg (285-295); Potassium 3.7 mmol/L (3.5-5.1); Sodium 140 mmol/L (136-145)
== END 2024-01-20 16:46 | disposition home or self-care (01) ==
LOC: LAB 16:56
PROVIDERS: PCP Family Medicine
DX: K57.92 Diverticulitis of intestine, part unspecified, without perforation or abscess without bleeding (principal)
CPT/HCPCS: 36415; 80048; 85027

== ENCOUNTER → 2024-02-09 10:45 | Outpatient (BNVA) | payer OTHER, SELFPAY | PROVIDERS: PCP Family Medicine; Visit Provider Nurse Practitioner | DX: S83.249A Other tear of medial meniscus, current injury, unspecified knee, initial encounter (principal); M17.12 Unilateral primary osteoarthritis, left knee; X58.XXXA Exposure to other specified factors, initial encounter | CPT/HCPCS: 36415; 80053; 81003; 81015; 83036; 85025 ==

== ENCOUNTER → 2024-04-12 10:55 | Outpatient (BNVA) | payer OTHER, SELFPAY | PROVIDERS: PCP Family Medicine; Visit Provider Specialist | DX: Z01.818 Encounter for other preprocedural examination (principal); S83.232D Complex tear of medial meniscus, current injury, left knee, subsequent encounter; X58.XXXD Exposure to other specified factors, subsequent encounter; M17.12 Unilateral primary osteoarthritis, left knee | CPT/HCPCS: 36415; 80053; 83036; 85025 ==

== ENCOUNTER 2024-04-18 05:45 | Day surgery (SDC) | payer OTHER, SELFPAY ==
[2024-04-18] VITALS (10 sets, daily range): BP systolic 92–162; BP diastolic 48–73; PULSE 60–79; RESP 14–18; TEMP 36.2–36.4; O2SAT 91–99
[2024-04-18] MEDS: sodium chloride 0.9% 1,000 ML 30 ML IV (06:22)
[2024-04-18] MEDS: acetaminophen 1,000 MG/100 ML PIGGYBACK 400 MG IV (06:24)
[2024-04-18] MEDS: CELEcoxib 200 mg Capsule 400 MG PO (06:26)
[2024-04-18] MEDS: gabapentin 300 mg Capsule PO (06:26)
[2024-04-18 06:32] LABS: Glucose Point of Care 161 mg/dL (70-110)
--- NOTE | 2024-04-18 06:42 | ANES.PREANE2 ---
Pre-Anesthetic Assessment Height/Weight: Height 1.65 m Weight 88.904 kg Temp Pulse Resp BP Pulse Ox O2 Del Method 97.1 F L 70 16 162/73 97 Room Air 04/18/24 06:09 04/18/24 06:09 04/18/24 06:09 04/18/24 06:09 04/18/24 06:09 04/18/24 06:09 Operation Date: 04/18/24 07:00 Proposed Procedures p Knee Arthroscopy Knee Arthroscopy w/ Medial Menisectomy(Left) - Avelina Verdin MD s Debridement Lower Extremity(Left) - Avelina Verdin MD Familial anesthetic complications: None Was Beta Rufino taken within 24 hours: Yes Was Clonidine taken within 24 hours: N/A Last intake: Intake Last Liquid Date 04/17/24 Last Liquid Time 17:30 Last Solid Date 04/17/24 Last Solid Time 17:30 Social No alcohol and No tobacco Exam alert, oriented x 3, clear to auscultation bilaterally and regular rate & rhythm Airway Mallampati: Class II Dentition: full CV/HEM Hypertension GI Gastroesophageal Reflux Disease Metabolic Diabetes Mellitus Anesthetic Plan ASA status: 2 Anesthesia: General Risk of > 500 ml blood loss (7ml/kg in children): No Medications/Allergies Home Medications Medication Instructions Recorded Confirmed Last Taken Type cetirizine 10 mg capsule 10 mg PO QAM 12/20/19 04/18/24 04/17/24 History biotin 2,500 mcg capsule 2,500 mcg PO DAILY 04/02/23 04/18/24 04/17/24 History magnesium oxide 400 mg PO QAM 04/02/23 04/18/24 04/17/24 History potassium gluconate 595 mg (99 mg) 595 mg PO QAM 04/02/23 04/18/24 04/17/24 History tablet omeprazole 40 mg capsule,delayed 40 mg PO DAILY #90 caps 04/09/23 04/18/24 04/17/24 Rx release atenolol 25 mg tablet See Rx Instructions .Route 06/17/23 04/18/24 04/17/24 Rx .COMPLEX #90 tabs lisinopril 20 1 tab PO BID #180 tabs 06/17/23 04/18/24 04/17/24 Rx mg-hydrochlorothiazide 12.5 mg tablet dicyclomine 10 mg capsule 10 mg PO TID PRN spasms #30 caps 10/14/23 04/18/24 Unknown Rx celecoxib 100 mg capsule (Celebrex) 100 mg PO DAILY #90 caps 01/04/24 04/18/24 Unknown Rx blood-glucose meter,continuous #1 ea 03/21/24 04/18/24 Unknown Rx (Dexcom G6 Diesel Mechanic Apprentice) blood-glucose sensor (Dexcom G6 #3 ea 03/21/24 04/18/24 Unknown Rx Sensor device) blood-glucose transmitter (Dexcom #1 ea 03/21/24 04/18/24 Unknown Rx G6 Transmitter device) semaglutide 0.25 mg or 0.5 mg (2 0.5 mg (0.736 mL) SUBCUT Q7D #3 mL 03/21/24 04/18/24 04/07/24 Rx mg/3 mL) subcutaneous pen injector (Ozempic) blood-glucose meter,continuous #1 ea 04/13/24 04/18/24 Unknown Rx (Dexcom G7 Diesel Mechanic Apprentice) blood-glucose sensor (Dexcom G7 #1 ea 04/13/24 04/18/24 Unknown Rx Sensor device) Allergies Allergy/AdvReac Type Severity Reaction Status Date / Time No Known Allergies Allergy Verified 04/17/24 10:59 Current Medications Generic Name Dose Route Start Last Admin Trade Name Freq PRN Reason Stop Dose Admin Sodium Chloride 1,000 mls @ 30 mls/hr 04/18/24 06:00 04/18/24 06:22 Sodium Chloride 0.9% IV 04/19/24 05:59 30 mls/hr .Q24H JACKELIN Administration PFSH Anesthesia Medical History Diabetes mellitus Primary osteoarthritis of left knee Hypertension Surgical History History of left knee surgery Left meniscus - 01/09/21 History of cholecystectomy Status post colonoscopy (01/09/20) repeat in 10 years Family History Sister Chronic kidney disease (CKD) after being removed from dialysis Father Postsurgical cardiac pacemaker in situ Mother Lupus (systemic lupus erythematosus) Social History Smoking and tobacco/nicotine status: never used tobacco/nicotine Alcohol intake: current Alcohol intake frequency: holidays/special occasions only Substance/Drug Use: never Data Anesthesia Cardiac Studies: Sestamibi Stress Test (Cardiology) 05/05/23
--- NOTE | 2024-04-18 06:59 | W.PM.OPSUD ---
Surgery/Procedure H&P Update DATE OF PROCEDURE: April 18, 2024 DATE H&P PERFORMED: 04/12/24 H&P UPDATE INFORMATION: I have reviewed H&P completed within last 30 days, I have examined patient prior to procedure and H&P is in [facility] EMR on date indicated PLANNED PROCEDURE: Operation Date: 04/18/24 07:00 Proposed Procedures p Knee Arthroscopy Knee Arthroscopy w/ Medial Menisectomy(Left) - Avelina Verdin MD s Debridement Lower Extremity(Left) - Avelina Verdin MD Related Problem List Diagnoses (1) Tear of medial meniscus of left knee: Qualifiers: Tear current or old: current Encounter type: subsequent encounter Meniscus tear of knee type: complex Qualified Code(s): S83.232D - Complex tear of medial meniscus, current injury, left knee, subsequent encounter (2) Primary osteoarthritis of left knee:
[2024-04-18] MEDS: ceFAZolin 2,000 mg SDV 2000 MG IVP (07:03)
[2024-04-18] MEDS: morphine 4 mg/mL SDV 1 mL 8 MG XX (07:45)
[2024-04-18] MEDS: ROPivacaine 0.5% SDV 30 mL 150 MG INJECTION (07:45)
--- NOTE | 2024-04-18 08:30 | P.OP_ITS ---
Operative Report Date of procedure: April 18, 2024 Pre-op diagnosis: Left knee medial meniscal tear with degenerative osteoarthritis Post-op diagnosis: Left knee medial and lateral meniscal tears with degenerative osteoarthritis, mild Post-op findings: Inner rim tearing of the medial and lateral meniscus. Osteoarthritis with chondromalacia of the medial femoral condyle and the lateral tibial plateau. Adhesions secondary to previous arthroscopic surgery Procedure done: Left knee arthroscopy with partial medial and lateral meniscectomies, debridement of synovium and adhesions Implants: None Specimens removed/disposition: Meniscal and synovial shavings, disposed of Surgeon: Avelina Verdin MD Vulcanized Fiber Unit Operator: None Anesthesia: General (Intubated, ASA 2) Estimated blood loss (mL): 2 Tourniquet time (min): 27 (At 250 mmHg) IV fluids (mL): 800 Urine output (mL): 0 (No Horner) Complications: None Findings: Inner rim tearing of both the medial and lateral meniscus. Diffuse degenerative changes with chondromalacia. Adhesions from prior knee arthroscopy. Disposition: PACU (Then return to same-day surgery for discharge to home) Brief History: This 54-year-old woman presented to the office with complaints of right knee pain. Her date of injury was November 2023. She continued to have pain in her knee and rated at a 5 of 10. She wore a brace, but that helped with the swelling and not with the pain. She also did a home exercise program. After discussion, the patient wished to proceed with arthroscopic knee surgery. Risks and complications of the surgery were explained to her. Questions were answered and consents were signed in the office. She was scheduled for the above procedure. Procedure: Patient was brought to the operating theater and after undergoing adequate spinal anesthesia, the patient's left lower extremity was prepped and draped in usual fashion utilizing DuraPrep. A tourniquet was placed high on the leg prior to prepping and draping. The tourniquet was elevated prior to commencement of the surgical procedure to 250 mmHg. Total tourniquet time was 27 minutes. Elevation followed prepping and exsanguination. Prior to commencement of the surgical procedure, a surgical pause was performed. At the time of the surgical pause, we identified the site and side of surgery. We also confirmed the patient's identity and appropriate and timely administration of preoperative antibiotics. Preoperative surgical markings were also visualized at this time. Standard arthroscopic portals were utilized including superolateral, inferomedial, and inferolateral portals. The examination commenced in the suprapatellar pouch area where the patient was noted to have minimal changes on the undersurface of the patella. The arthroscope was then passed in the medial compartment where there was noted to be chondromalacia of the medial femoral condyle as well as inner rim tearing and thinning of the medial meniscus. The arthroscope was then passed across the notch area where anterior cruciate ligament was visualized and found to be intact. The scope was passed into the lateral compartment with the knee in a [id number] position. Lateral meniscus was noted to have inner rim tearing. Also, there was chondromalacia of the tibial plateau. These were addressed with a heat wand. Once lateral meniscus had been thus prepared it was palpated and found to be intact and not displaceable into the knee joint. Scope was then returned to the medial compartment where the medial meniscus was addressed similarly with the heat wand on both the anterior horn and posterior medial corner. The meniscus was palpated and found to be not displaceable into the knee joint. Debridement of synovium and adhesions from the prior arthroscopic procedure were debrided both anteriorly and in the suprapatellar pouch area. The arthroscope was then returned to the patellofemoral joint which was reevaluated. There was no significant chondromalacia. The scope was passed back through the knee compartments to evaluate for other abnormalities. Finding none, attention was directed to closure. The knee was copiously irrigated and suctioned dry. Following this, each portal was closed with a simple suture followed by Dermabond and Tegaderm. Additionally, the knee was injected with 20 mL of half percent ropivacaine and 8 mg of morphine. Additional 10 mL of ropivacaine was placed about the portals. Sterile dressing was placed consisting of the Tegaderm followed by the Grupo wrap. Patient was returned to Recovery Room in satisfactory condition where he will be discharged home to follow-up with me in the office as scheduled. There were no complications and no specimens. Related Problem List Diagnoses (1) Tear of medial meniscus of left knee: (2) Tear of lateral meniscus of left knee: (3) Primary osteoarthritis of left knee:
[2024-04-18] MEDS: HYDROcodone-acetaminophen 5-325 mg Tablet 1 TAB PO (09:12)
[2024-04-18 09:36] LABS: OR HCG Qualitative Urine Negative (Negative)
--- NOTE | 2024-04-18 10:10 | ANE.PACU2 ---
Inpatient post-anesthesia follow up: Airway intact: Yes Vital signs: Temperature 97.5 F Pulse Rate 69 Respiratory Rate 18 Blood Pressure 113/69 Pulse Oximetry 95 Oxygen Delivery Me thod Room Air Oxygen Flow Rate 6 Fraction of Inspir ed Oxygen Hydration adequate: Yes Nausea and vomiting: No Pain level: 1 Mental status: Baseline
== END 2024-04-18 10:10 | disposition home or self-care (01) ==
PROVIDERS: Anesthesiology; PCP Family Medicine; Visit Provider Specialist
PROC: (CPT 29870; principal; 2024-04-18 07:00)
PROC: (CPT 29880; 2024-04-18 07:00)
DX: M17.12 Unilateral primary osteoarthritis, left knee (principal); I10 Essential (primary) hypertension; K21.9 Gastro-esophageal reflux disease without esophagitis; E11.9 Type 2 diabetes mellitus without complications
CPT/HCPCS: 29880; 36416; 81025; 82962; J0131; J0330; J0690; J1100; J1170; J2250; J2270; J2405; J2704; J2795; J7030

== ENCOUNTER → 2024-04-27 12:48 | Outpatient (BNVA) | payer OTHER, SELFPAY | PROVIDERS: PCP Family Medicine; Visit Provider Family Medicine | DX: R76.9 Abnormal immunological finding in serum, unspecified (principal) | CPT/HCPCS: 81003 ==

== ENCOUNTER 2024-05-30 15:51 | Outpatient (CLI) | payer OTHER, SELFPAY ==
[2024-05-31 16:18] LABS: Collection Sample VENOUS
== END 2024-05-30 15:52 | disposition home or self-care (01) ==
LOC: LAB 15:52
PROVIDERS: PCP Family Medicine; Visit Provider Family Medicine
DX: Z77.011 Contact with and (suspected) exposure to lead (principal)
CPT/HCPCS: 36415; 83655

== ENCOUNTER → 2024-10-06 11:04 | Outpatient (BNVA) | payer OTHER, SELFPAY | PROVIDERS: PCP Family Medicine; Visit Provider Nurse Practitioner | DX: M17.12 Unilateral primary osteoarthritis, left knee (principal); S83.207A Unspecified tear of unspecified meniscus, current injury, left knee, initial encounter; X58.XXXA Exposure to other specified factors, initial encounter | CPT/HCPCS: 73560; 73565 ==

== ENCOUNTER → 2024-11-24 10:57 | Outpatient (BNVA) | payer OTHER, SELFPAY | PROVIDERS: PCP Family Medicine; Visit Provider Family Medicine | DX: Z51.81 Encounter for therapeutic drug level monitoring (principal); Z00.00 Encounter for general adult medical examination without abnormal findings; E11.9 Type 2 diabetes mellitus without complications; Z13.6 Encounter for screening for cardiovascular disorders | CPT/HCPCS: 80053; 80061; 83036; 85025 ==

== ENCOUNTER 2024-12-14 07:19 | Outpatient (CLI) | payer OTHER, SELFPAY ==
--- NOTE | 2024-12-14 07:28 | MR_ITS ---
WS: [id number] MRI LEFT KNEE ARTHROGRAM WITH AND WITHOUT CONTRAST. COMPARISON: 12/12/2023 Multiplanar, multisequence imaging is performed with and without contrast. Gadolinium mixture was injected under fluoroscopy. History: LEFT knee pain and swelling for several days. Prior meniscectomies. Prearthrogram: Acute marrow edema in the medial femoral condyle is new since 12/30/2023. No additional marrow edema. ACL and PCL are intact. Signal abnormality noted in the posterior horn lateral meniscus near the meniscocapsular junction. There is increased T2 signal extending from the meniscus to the capsule. Very similar to the prior MRI from 12/30/2023. Normal MCL and posterior lateral corner structures. No significant joint effusion. No Hollingsworth's cyst. No significant loss of cartilage at the patellofemoral junction. Abnormal signal along the weightbearing surface medial femoral condyle extends through the meniscus and into the marrow. This corresponds with the marrow signal abnormality in the femoral condyle. There is mild narrowing and mild loss of cartilage otherwise of the medial compartment. Lateral compartment is well preserved. Post arthrogram: Good distention of the joint space. There is also small amount of extra-articular contrast. The signal abnormality noted on the precontrast exam involving the posterior horn of the lateral meniscus fills with contrast. There does appear to be a complex tear at the meniscal capsular junction of the posterior horn. No additional meniscal tears are identified. ACL is intact. Contrast extends into the Hollingsworth's cyst which is still patent. MR/MR knee LT wo/w con [id number] IMPRESSION: 1. Acute marrow edema in the medial femoral condyle extends to the weightbeari ng surface. 2. Focal cartilage defect weightbearing surface the medial femoral condyle whi ch is associated with the marrow edema. 3. Linear signal abnormality in the posterior horn of the lateral meniscus whi ch extends to the capsule. On the postcontrast image there is increased fluid e xtending through the signal abnormality. Consistent with a tear at the meniscoc apsular junction.
--- NOTE | 2024-12-14 08:00 | IR_ITS ---
WS: [id number] LEFT KNEE ARTHROGRAM (FLUOROSCOPY) LEFT knee arthrogram was performed in fluoroscopy prior to MRI evaluation. HISTORY: knee pain. Hx of scope COMPARISON: None. FLUOROSCOPY TIME: 3min [id number] # of spot films: 2 Procedure, risks and complications were explained to the patient. Complications include but not limited to bleeding, infection and contrast reaction. Current medications are reviewed. Skin is cleansed with ChloraPrep. Skin is anesthetized with 1% buffered lidocaine. 22-gauge needle is inserted into the patellofemoral joint. Approximately 30 cc of gadolinium mixture injected without complication. Patient will proceed to MRI evaluation immediately. No complications were encountered. Patient is instructed to watch for post procedure infection or bleeding. Patient is also instructed to contact the radiology department with any concerns. IR/[place] [id number] IMPRESSION: Uncomplicated LEFT knee joint injection prior to MRI arthrogram.
[2024-12-14] MEDS: gadobenate dimeglumine 20 mL vial IV (10:32)
== END 2024-12-14 07:20 | disposition home or self-care (01) ==
PROVIDERS: PCP Family Medicine; Visit Provider Nurse Practitioner
DX: S83.207A Unspecified tear of unspecified meniscus, current injury, left knee, initial encounter (principal); Z98.890 Other specified postprocedural states; M17.12 Unilateral primary osteoarthritis, left knee; X58.XXXA Exposure to other specified factors, initial encounter
CPT/HCPCS: 27369; 73723; 77002

== ENCOUNTER → 2025-01-01 11:36 | Outpatient (BNVA) | payer OTHER, SELFPAY | PROVIDERS: PCP Family Medicine; Visit Provider Nurse Practitioner | DX: S83.282D Other tear of lateral meniscus, current injury, left knee, subsequent encounter (principal); X58.XXXD Exposure to other specified factors, subsequent encounter | CPT/HCPCS: 36415; 81001; 85025 ==

== ENCOUNTER 2025-01-08 15:36 | Outpatient (CLI) | payer OTHER, SELFPAY ==
[2025-01-08 16:17] LABS: Basophils % 0.5 %; Eosinophils # 0.1 10^3/uL (0.0-0.8); Eosinophils % 2.5 %; Hematocrit 39.2 % (36-47); Lymphocytes # 1.5 10^3/uL (0.8-4.8); Lymphocytes % 38.7 %; Mean Corpuscular HGB Conc 33.2 g/dL (30-55); Mean Corpuscular Hemoglobin 28.4 pg (27-33); Mean Corpuscular Volume 85.8 fl (85-98); Mean Platelet Volume 10.5 fL (7.4-10.4); Monocytes # 0.4 10^3/uL (0.2-0.9); Monocytes % 8.8 %; Neutrophils # 1.97 10^3/uL (1.8-7.7); Neutrophils % 49.5 %; Nucleated Red Blood Cells % 0 %; Platelet Count 266 10^3/cmm (157-399); Red Blood Count 4.57 10^6/uL (3.85-5.65); Red Cell Distribution Width 13.7 % (12.1-15.1); White Blood Count 3.98 10^3/uL (3.29-11.43)
[2025-01-08 16:45] LABS: Alanine Aminotransferase 68 U/L (0-33); Albumin Level 4.2 g/dL (3.5-5.2); Alkaline Phosphatase 59 U/L (35-105); Anion Gap 17.6 (5-19); Aspartate Amino Transferase 50 U/L (0-32); Blood Urea Nitrogen 10 mg/dL (6-20); Calcium 9.2 mg/dL (8.5-10.5); Carbon Dioxide 25 mmol/L (22-29); Chloride 101 mmol/L (98-107); Globulin 2.9 g/dL (1.3-4.6); Glomerular Filtration Rate 74.5 mL/min (90-130); Glucose 139 mg/dL (65-115); Osmolality Calculated 291 mOsm/kg (285-295); Potassium 3.6 mmol/L (3.5-5.1); Sodium 140 mmol/L (136-145); Total Bilirubin 0.3 mg/dL (0.15-1.2); Total Protein 7.1 g/dL (6.6-8.7)
== END 2025-01-08 15:37 | disposition home or self-care (01) ==
LOC: LAB 15:38
PROVIDERS: PCP Family Medicine; Visit Provider Nurse Practitioner
DX: S83.282D Other tear of lateral meniscus, current injury, left knee, subsequent encounter (principal); X58.XXXD Exposure to other specified factors, subsequent encounter
CPT/HCPCS: 36415; 80053; 85025

== ENCOUNTER 2025-01-09 05:00 | Outpatient (RCR) | payer OTHER, SELFPAY | END 2025-02-08 23:59 | disposition home or self-care (01) | LOC: SPT 05:00 | PROVIDERS: PCP Family Medicine; Visit Provider Specialist | DX: Z47.1 Aftercare following joint replacement surgery (principal); Z96.652 Presence of left artificial knee joint | CPT/HCPCS: 97110; 97161 ==

== ENCOUNTER 2025-01-16 07:20 | Outpatient (CLI) | payer OTHER, SELFPAY ==
--- NOTE | 2025-01-16 07:00 | CT_ITS ---
WS: [id number] CT LEFT KNEE, NONCONTRAST [facility] TECHNIQUE: Noncontrast CT of the LEFT knee to include the LEFT hip and ankle. CLINICAL INFORMATION: S83.207A - Unspecified tear of unspecified meniscus, curr... DLP: 928.[address] scans at [facility] use at least one of these dose optimization techniques: automated exposure control; mA and/or kV adjustment per patient size (includes targeted exams where dose is matched to clinical indication); or iterative reconstruction. FINDINGS: Advanced degenerative narrowing medial joint compartments LEFT knee. Fkwe-zi-fher articulation seen on the prior MRI. Trace suprapatellar effusion. Slightly hypertrophic patella. Sigmoid diverticulosis. CT/CT knee LT [facility] [id number] IMPRESSION: Images obtained for preoperative purposes.
== END 2025-01-16 07:21 | disposition home or self-care (01) ==
PROVIDERS: PCP Family Medicine; Visit Provider Nurse Practitioner
DX: S83.282A Other tear of lateral meniscus, current injury, left knee, initial encounter (principal); M17.12 Unilateral primary osteoarthritis, left knee; Z98.890 Other specified postprocedural states; X58.XXXA Exposure to other specified factors, initial encounter
CPT/HCPCS: 73700

== ENCOUNTER → 2025-01-17 07:44 | Outpatient (BNVA) | payer OTHER, SELFPAY | PROVIDERS: PCP Family Medicine; Visit Provider Family Medicine | DX: Z01.818 Encounter for other preprocedural examination (principal) | CPT/HCPCS: 93005 ==

== ENCOUNTER 2025-01-18 14:36 | Observation (INO) | payer OTHER, SELFPAY ==
[2025-01-18] VITALS (13 sets, daily range): BP systolic 114–136; BP diastolic 58–90; PULSE 66–81; RESP 16–18; TEMP 36.4–36.7; O2SAT 91–98; BMI 30.1
--- NOTE | 2025-01-18 09:51 | ANES.PREANE2 ---
Pre-Anesthetic Assessment Height/Weight: Height 1.65 m Operation Date: 01/18/25 10:45 Proposed Procedures p PARTIAL KNEE ARTHROPLASTY , MEDIAL, UNI-COMPARTMENTAL with RAYRAY(Left) - Avelina Verdin MD Familial anesthetic complications: None Was Beta Rufino taken within 24 hours: Yes Was Clonidine taken within 24 hours: N/A Last intake: > 8 hrs Social No alcohol and No tobacco Exam alert, oriented x 3, clear to auscultation bilaterally and regular rate & rhythm Airway Mallampati: Class I Dentition: full CV/HEM Hypertension GI Gastroesophageal Reflux Disease Anesthetic Plan ASA status: 3 Anesthesia: Regional (specify below) Other: Spinal Risk of > 500 ml blood loss (7ml/kg in children): No Medications/Allergies Home Medications ?Medication ?Instructions ?Recorded ?Confirmed ?Last Taken ?Type cetirizine 10 mg capsule 10 mg PO QAM 12/20/19 01/17/25 01/17/25 History magnesium oxide 400 mg PO QAM 04/02/23 01/17/25 01/17/25 History omeprazole 40 mg capsule,delayed 40 mg PO DAILY #90 caps 05/04/24 01/18/25 01/18/25 Rx release lisinopril 20 1 tab PO BID #180 tabs 06/19/24 01/17/25 01/17/25 Rx mg-hydrochlorothiazide 12.5 mg tablet semaglutide 2 mg/dose (8 mg/3 mL) 2 mg (0.75 mL) SUBCUT Q7D #3 mL 11/28/24 01/17/25 01/04/25 Rx subcutaneous pen injector atenolol 25 mg tablet 25 mg PO DAILY 01/18/25 01/18/25 01/17/25 History Allergies Allergy/AdvReac Type Severity Reaction Status Date / Time No Known Allergies Allergy Verified 01/17/25 13:59 [facility] Anesthesia Medical History Osteochondral defect Becca sign present in left knee Diabetes mellitus Primary osteoarthritis of left knee Hypertension Surgical History History of arthroscopy of knee Date of procedure: April 18, 2024 Pre-op diagnosis: Left knee medial meniscal tear with degenerative osteoarthritis Post-op findings: Inner rim tearing of the medial and lateral meniscus. Osteoarthritis with chondromalacia of the medial femoral condyle and the lateral tibial plateau. Adhesions secondary to previous arthroscopic surgery Procedure done: Left knee arthroscopy with partial medial and lateral meniscectomies, debridement of synovium and adhesions Surgeon: Avelina Verdin MD History of left knee surgery Left meniscus - 01/09/21 History of cholecystectomy Status post colonoscopy (01/09/20) repeat in 10 years Family History Sister Chronic kidney disease (CKD) after being removed from dialysis Father Postsurgical cardiac pacemaker in situ Mother Lupus (systemic lupus erythematosus) Social History Smoking and tobacco/nicotine status: never used tobacco/nicotine Alcohol intake: current Alcohol intake frequency: holidays/special occasions only Substance/Drug Use: never Data Anesthesia Cardiac Studies: Sestamibi Stress Test (Cardiology) 05/05/23
[2025-01-18] MEDS: acetaminophen 1,000 MG/100 ML PIGGYBACK 400 MG IV ×2 (10:00→18:11)
--- NOTE | 2025-01-18 11:08 | P.HPUD_ITS ---
Surgery/Procedure H&P Update DATE OF PROCEDURE: January 18, 2025 DATE H&P PERFORMED: 01/17/25 H&P UPDATE INFORMATION: I have reviewed H&P completed within last 30 days, I have examined patient prior to procedure, No changes to prior documentation, H&P is in [facility] EMR on date indicated and Risks and benefits of the procedure reviewed PLANNED PROCEDURE: Operation Date: 01/18/25 10:45 Proposed Procedures p PARTIAL KNEE ARTHROPLASTY , MEDIAL, UNI-COMPARTMENTAL with RAYRAY(Left) - Avelina Verdin MD Related Problem List Diagnoses 1. Primary osteoarthritis of left knee:
[2025-01-18] MEDS: ceFAZolin 2,000 mg SDV 2000 MG IVP ×2 (11:29→21:02)
[2025-01-18] MEDS: tranexamic acid 1,000 mg/10mL SDV 1000 MG IV (11:50)
[2025-01-18] MEDS: BUPivacaine 0.5% INJ 30 mL 20 ML INJECTION (12:41)
[2025-01-18] MEDS: BUPivacaine liposome 13.3 mg/mL SDV 20 mL 266 MG INFILTRATI (12:44)
[2025-01-18] MEDS: ceFAZolin 1,000 mg SDV 2000 MG IRRIGATION (12:45)
[2025-01-18] MEDS: fentaNYL 50 mcg/mL INJ 2mL IVP (14:40)
--- NOTE | 2025-01-18 14:45 | XRR_ITS ---
PROCEDURE INFORMATION: Exam: XR Left Knee Exam date and time: 01/18/2025 2:44 PM Age: 55 years old Clinical indication: Device placement; Joint replacement hardware; Prior surgery; Surgery date: Post-operative (0-2 days); Surgery type: Status post unicompartmental left knee arthroplasty TECHNIQUE: Imaging protocol: Radiologic exam of the left knee. Views: 1 or 2 views. COMPARISON: CT knee LT [facility] [id number] 01/16/2025 7:46 AM FINDINGS: Bones/joints: Medial hemiarthroplasty of the left knee joint. Unremarkable alignment. No fractures. Intra-articular air. Negative for joint effusion. Soft tissues: Soft tissue gas. XR/XR knee LT 1-2V [id number] IMPRESSION: Unremarkable postoperative knee arthroplasty surveillance.
--- NOTE | 2025-01-18 14:57 | P.OP_ITS ---
Operative Report Date of procedure: January 18, 2025 Pre-op diagnosis: Left knee medial compartment primary osteoarthritis Post-op diagnosis: Left knee medial compartment primary osteoarthritis Post-op findings: Significant cartilage loss along the medial femoral condyle in the weightbearing portion Procedure done: Left knee medial unicompartmental arthroplasty with Carlos guidance Implants: The Louis knee system with a size 3LM Carlos onlay tibial baseplate and a Carlos onlay tibial insert size 3 x 10 mm with a size 3LM femoral component Specimens removed/disposition: Bone, disposed of Pathology: None Surgeon: Avelina Verdin MD [place]: [facility] operating room technicians Anesthesia: Spinal (With MAC, ASA 3) Estimated blood loss (mL): 50 Tourniquet time (min): 0 (Not utilized) IV fluids (mL): 1,000 Urine output (mL): 50 Complications: None Findings: Severe degenerative osteoarthritis with loss of cartilage over the weightbearing surface of the medial femoral condyle Condition: stable Disposition: PACU (Then return to same-day surgery for discharge to home) Brief History: This 55-year-old woman presents with complaints of severe left knee pain prima rily involving the medial compartment. She has no significant patellofemoral osteoarthritis. She has failed bracing, injections, anti-inflammatory medications orally and topically, activity modification, and prior arthroscopy. After discussion, she wished to proceed with operative intervention in the form of a unicompartmental left knee arthroplasty. Risks and complications were discussed with her. Consents were signed and questions were answered. Procedure: The patient was brought to the operating theater, and after undergoing spinal anesthesia with supplemental MAC, as well as an adductor canal block, ASA 3, the left lower extremity was prepped with Dura-Prep and draped in usual fashion following placement of a tourniquet high on the leg. The leg was then draped free.? Tourniquet was not elevated during the case.? A surgical pause was performed, and at the time of the surgical pause, we confirmed the site and side of surgery. Additionally, we confirmed the appropriate and timely administration of preoperative antibiotics, Ancef 2 g and Transexemic acid 1 g.? The availability of equipment was confirmed, and the patient's identity was verbalized as well.? An additional transexemic acid 1 g will be given postoperatively on the floor. Following the surgical pause, an incision was made centering over the patella continuing proximally and distally as necessary to allow access to the knee joint. Dissection continued through skin and soft tissues using a scalpel. Hemostasis was obtained using electrocautery. The skin incision was followed by a median parapatellar arthrotomy with care to protect the lateral compartment and patellofemoral. The leg was extended and the patella was able to be displaced laterally.? Appropriate arrays and markers were placed in appropriate position for use of the Carlos.? Preoperative planning had been accomplished and was discussed in detail with the [facility] statement services representative.? Intraoperative mapping of the femur and tibia was accomplished after the arrays were placed.? Internal markers were also placed.? Once we had accomplished the Carlos mapping, we began the appropriate resections for placement of the prosthesis.? The plan was for a left unicompartmental knee arthroplasty. Once appropriate mapping had been accomplished retraction was established using manual retraction by surgical technicians and also the Carlos leg positioner and retractors.? The knee was evaluated.? There was noted to be complete denudement of cartilage from the medial aspect of the femur and tibia. The lateral c ompartment was found to be nearly pristine. The patella was also found to be nearly pristine. Appropriate bone resection was accomplished utilizing the Carlos. This resection began on the tibia and proceeded to the femur medially. The femur and tibia were appropriate previously prepared for cementing of the unicompartmental prosthesis. A trial reduction was accomplished following removal of the medial meniscus. The anterior cruciate ligament was retained. The trial reduction initially was accomplished with the size 3 tibial baseplate and a 3 x 8 mm insert. We subsequently increase that to a 10 mm insert after the trial reduction was accomplished. The size 3 femur was placed in position without difficulty. With these components in position, we had excellent extension without hyperextension as the patient initially demonstrated. We had excellent varus/valgus stability throughout all range of motion of the knee. Therefore, preparation was made for cementing. The knee was copiously irrigated. It was subsequently dried. Cementing was then accomplished first the tibia followed by the femur. Excess cement was cleared from around the prosthetic components. The size 3 x 10 mm insert was placed into position. The knee was placed through range of motion. Further cement was cleared following that. Once the cement had fully cured, attention was directed to closure. The knee was then copiously irrigated with betadine and saline and suctioned dry. Attention was then directed to closure. Closure was accomplished with 0 Vicryl in the fascial tissues.? The suture line of 0 Vicryl was supplemented with strata fix, #0, with a running stitch from proximal to distal and a second running stitch from distal to proximal.? This was followed by Surgiflo and vancomycin powder.? Following this, a 2-0 Monocryl strata fix was used in the subcutaneous tissues, and the skin was closed with a running 3 oh STRATAFIX.? Care was taken to assure an excellent subcutaneous as well as skin closure.? A sterile dressing was then placed consisting of Dermabond Prineo, OpSite, sterile soft roll, and an Grupo wrap including over the foot. The patient was returned the Recovery Room in a satisfactory condition. X- rays were obtained and reviewed there.? The patient will be discharged to the floor for postoperative rehabilitation and pain management. Related Problem List Diagnoses 1. Primary osteoarthritis of left knee:
[2025-01-18] MEDS: morphine 4 mg/mL SDV 1 mL 2 MG IVP (15:46)
[2025-01-18] MEDS: oxyCODONE 5 mg IR Tab/Cap PO ×2 (16:53→21:01)
[2025-01-18] MEDS: sennosides-docusate Tablet 2 TAB PO (17:59)
[2025-01-18] MEDS: tranexamic acid 1,000 MG/100 ML PREMIX 600 MG IV (17:59)
[2025-01-18] MEDS: chlorhexidine gluconate 0.12% Btl 473 mL 30 ML MUCOUS MEM ×2 (18:12→21:09)
[2025-01-18] MEDS: mupirocin oint 22 gm 1 APPLIC NASAL (18:13)
[2025-01-19 00:32] VITALS: BP 100/63; PULSE 71; RESP 16; TEMP 36.8; O2SAT 95
[2025-01-19] MEDS: acetaminophen 1,000 MG/100 ML PIGGYBACK 400 MG IV ×2 (01:15→10:47)
[2025-01-19] MEDS: ceFAZolin 2,000 mg SDV 2000 MG IVP ×2 (04:25→12:12)
[2025-01-19 04:59] LABS: Hematocrit 31.9 % (36-47); Hemoglobin 10.60 g/dL (11.27-16.99); Mean Corpuscular HGB Conc 33.2 g/dL (30-55); Mean Corpuscular Hemoglobin 28.5 pg (27-33); Mean Corpuscular Volume 85.8 fl (85-98); Nucleated Red Blood Cells % 0 %; Platelet Count 231 10^3/cmm (157-399); Red Blood Count 3.72 10^6/uL (3.85-5.65); White Blood Count 8.94 10^3/uL (3.29-11.43)
[2025-01-19 05:29] LABS: Anion Gap 14.6 (5-19); Blood Urea Nitrogen 15 mg/dL (6-20); Calcium 9.1 mg/dL (8.5-10.5); Carbon Dioxide 24 mmol/L (22-29); Chloride 101 mmol/L (98-107); Creatinine Clr Calc Pharmacy 73.8681; Glucose 137 mg/dL (65-115); Osmolality Calculated 283 mOsm/kg (285-295); Potassium 4.6 mmol/L (3.5-5.1); Sodium 135 mmol/L (136-145)
[2025-01-19 06:07] VITALS: RESP 17
[2025-01-19] MEDS: oxyCODONE 5 mg IR Tab/Cap PO ×2 (06:07→10:48)
[2025-01-19 08:19] VITALS: BP 121/73; PULSE 70; RESP 18; TEMP 36.7; O2SAT 96
[2025-01-19] MEDS: sennosides-docusate Tablet 2 TAB PO (08:20)
[2025-01-19] MEDS: mupirocin oint 22 gm 1 APPLIC NASAL (08:24)
[2025-01-19] MEDS: chlorhexidine gluconate 0.12% Btl 473 mL 30 ML MUCOUS MEM ×2 (08:24→12:28)
[2025-01-19 10:48] VITALS: RESP 17
[2025-01-19 12:42] VITALS: BP 105/68; PULSE 67; RESP 18; TEMP 36.9; O2SAT 97
--- NOTE | 2025-01-19 14:20 | PM.DCS ---
Discharge Providers Date of Admission: 01/18/25 14:36 Date of Discharge: January 19, 2025 Attending Provider at Admission: Avelina Verdin MD Attending Provider at Discharge: Avelina Verdin MD Primary Care Provider: Kulwant Reuda MD Diagnoses at Discharge Discharge Diagnosis 1. History of unicondylar arthroplasty of knee: 2. Primary osteoarthritis of left knee: 3. Osteochondral defect: Reason for Visit Reason for Visit: M16.12 Brief History: This 55-year-old woman presents with complaints of severe left knee pain primarily involving the medial compartment. She has no significant patellofemoral osteoarthritis. She has failed bracing, injections, anti-inflammatory medications orally and topically, activity modification, and prior arthroscopy. After discussion, she wished to proceed with operative intervention in the form of a unicompartmental left knee arthroplasty. Risks and complications were discussed with her. Consents were signed and questions were answered. Hospital Course Hospital Course This 55-year-old woman was admitted under observation status following same-day surgery for unicompartmental left knee arthroplasty, cemented. The procedure was well-tolerated. She did have issues with postoperative pain, but this was managed and on the first postoperative day, she was able to participate with physical therapy uneventfully. She was felt to be safe for discharge home. There were no complications. Physical Exam Const: COMMON NORMALS: no acute distress, average body habitus, patient oriented x3 and alert GENERAL APPEARANCE: cooperative and comfortable ORIENTATION/CONSCIOUSNESS: Yes awake HENMT: COMMON NORMALS: normocephalic and atraumatic HEAD & SCALP: normocephalic and atraumatic Eye: GENERAL EYE: appearance normal, both eyes and all related structures Chest: COMMONS NORMALS: normal inspection of the chest Resp: COMMON NORMALS: normal respiratory effort EFFORT & INSPECTION: Yes able to speak in complete sentences and Yes symmetric chest movement Extremity: LEFT LOWER EXTREMITY: Yes knee joint (Dressing is dry and intact) Left knee: Yes inspection (No significant ecchymosis), Yes palpation (No significant tenderness), Yes ROM (Not evaluated) and Yes neurovascular exam (Intact distally with no evidence of DVT) Neuro: COMMON NORMALS: patient oriented x3 SENSORIUM/ORIENTATION: Yes alert Psych: COMMON NORMALS: mental status grossly normal APPEARANCE: Yes grossly normal ATTITUDE: Yes calm and Yes engaged ATTENTION/CONCENTRATION: Yes attention grossly intact Skin: COMMON NORMALS: no rashes or lesions noted GENERAL SKIN EXAM: no rashes or lesions noted Urinary Catheter Management: Horner: Cath Placed During This Visit: yes, but has since been removed by the nurse Reason for Continuing Indwelling Catheter: Decision to DC Catheter Urinary Catheter Date of Insertion: 01/18/25 Urinary Catheter Time of Insertion: 11:45 Date Urinary Catheter Removed: 01/19/25 Time Urinary Catheter Discontinued: 06:14 Discharge Data Studies Completed and Pending Completed Studies During Hospitalization Category Date Time Status XR knee LT 1-2V [id number] Routine Exams 01/18/25 14:45 Completed Pending at discharge Category Date Time Status Complete Blood Count w/Auto AM LABS Lab 01/20/25 04:00 Ordered Radiology Impressions Knee X-Ray 01/18/25 14:45 IMPRESSION: Unremarkable postoperative knee arthroplasty surveillance. Laboratory Results WBC 8.94 10^3/uL (3.29-11.43) 01/19/25 04:27 RBC 3.72 10^6/uL (3.85-5.65) L 01/19/25 04:27 Hgb 10.60 g/dL (11.27-16.99) L 01/19/25 04:27 Hct 31.9 % (36-47) L 01/19/25 04:27 MCV 85.8 fl (85-98) 01/19/25 04:27 MCH 28.5 pg (27-33) 01/19/25 04:27 MCHC 33.2 g/dL (30-55) 01/19/25 04:27 RDW 13.1 % (12.1-15.1) 01/19/25 04:27 Plt Count 231 10^3/cmm (157-399) 01/19/25 04:27 MPV 10.7 fL (7.4-10.4) H 01/19/25 04:27 Neut % (Auto) 81.7 % 01/19/25 04:27 Lymph % (Auto) 12.3 % 01/19/25 04:27 [place] % (Auto) 5.6 % 01/19/25 04:27 Eos % (Auto) 0.0 % 01/19/25 04:27 Baso % (Auto) 0.1 % 01/19/25 04:27 Neut # (Auto) 7.30 10^3/uL (1.8-7.7) 01/19/25 04:27 Lymph # (Auto) 1.1 10^3/uL (0.8-4.8) 01/19/25 04:27 [place] # (Auto) 0.5 10^3/uL (0.2-0.9) 01/19/25 04:27 Eos # (Auto) 0.0 10^3/uL (0.0-0.8) 01/19/25 04:27 Baso # (Auto) 0.0 10^3/uL (0.0-0.1) 01/19/25 04:27 Nucleated RBC % (auto) 0 % 01/19/25 04:27 Nucleated RBCs # 0.0 /100WBC 01/19/25 04:27 Sodium 135 mmol/L (136-145) L 01/19/25 04:27 Potassium 4.6 mmol/L (3.5-5.1) 01/19/25 04:27 Chloride 101 mmol/L (98-107) 01/19/25 04:27 Carbon Dioxide 24 mmol/L (22-29) 01/19/25 04:27 Anion Gap 14.6 (5-19) 01/19/25 04:27 BUN 15 mg/dL (6-20) 01/19/25 04:27 Creatinine 0.9 mg/dL (0.5-0.9) 01/19/25 04:27 GFR Calculation 64.8 mL/min (90-130) L 01/19/25 04:27 Glucose 137 mg/dL (65-115) H 01/19/25 04:27 POC Glucose 134 mg/dL (70-110) H 01/19/25 11:44 Calculated Osmolality 283 mOsm/kg (285-295) L 01/19/25 04:27 Calcium 9.1 mg/dL (8.5-10.5) 01/19/25 04:27 Vitals Last Vital Signs Temp 98.4 F 01/19/25 12:42 Pulse 67 01/19/25 12:42 Resp 18 01/19/25 12:42 BP 105/68 01/19/25 12:42 Pulse Ox 97 01/19/25 12:42 O2 Del Method Room Air 01/19/25 00:32 O2 Flow Rate 8 01/18/25 14:43 Discharge Plan Discharge Patient Disposition: Home Health Service Condition: Stable Prescriptions: New acetaminophen 500 mg Tablet 1,000 mg PO Q8H 15 Days Qty: 90 0RF aspirin 325 mg Tablet,Delayed Release (Dr/Ec) 325 mg PO DAILY 30 Days Qty: 30 0RF cyclobenzaprine 10 mg Tablet 5 mg PO TID PRN (Reason: Muscle Spasms) 15 Days Qty: 45 0RF celecoxib [Celebrex] 200 mg capsule 200 mg PO DAILY 30 Days Qty: 30 0RF Continued cetirizine 10 mg capsule 10 mg PO QAM semaglutide 2 mg/dose (8 mg/3 mL) pen injector 2 mg SUBCUT Q7D Qty: 3 5RF omeprazole 40 mg capsule,delayed release(DR/EC) 40 mg PO DAILY Qty: 90 3RF lisinopril-hydrochlorothiazide 20-12.5 mg tablet 1 tab PO BID Qty: 180 3RF atenolol 25 mg tablet 25 mg PO DAILY Rx Instructions: Take 1 tablet by mouth once daily magnesium oxide 400 mg magnesium Tablet 400 mg PO QAM Discharge Order = DC NOW: Discharge Order (Routine); Ordered 01/19/25 Ordered By: Avelina Verdin Other Ambulatory Orders: Physical Therapy Eval and Treat Outpatient (Order) Timeframe: 1 Day Facility: [facility] - Location: Physical Therapy [place] Ordered By: Avelina Verdin Referrals: [facility] Outpatient Therapy [Outside] Avelina Verdin MD [Physician, Orthopedics] - 02/05/25 9:30 am Discharge Diet: Advance as tolerated, Usual diet and Diabetic Discharge Activity: Increase activity as tolerated, Limit activity as instructed, Use walker/crutches as instructed and As per PT/OT instructions Patient Instructions: Acetaminophen (By mouth), Cyclobenzaprine (By mouth) (Flexeril, Amrix, Fexmid, FusePaq Tabradol), Aspirin (By mouth), Acute Wound Care (DC), Total Knee Replacement (DC), Opioid Safety, Post Anesthesia Care, Patient Portal & [place] Instructions Activity Restrictions/Additional Instructions: Weight-bear as tolerated. Range of motion, strengthening, and range of motion per physical therapy. You may shower, but do not submerge your knee in water such as a pool or bath. Please maintain your dressing unless it comes off on its own. Discharge Attestations Time Spent in Discharge Care*: greater than 30 min Specific Discharge Activities: educating patient, educating and/or supporting family/caregiver, documenting/other paperwork and evaluating patient/reviewing data Quality Metrics Clinical Quality Measures [ No reported AMI, CVA or VTE this stay] Coding Level of Care Code Acute Code for Chg Fwd Diagnoses History of unicondylar arthroplasty of knee Z96.659 Primary osteoarthritis of left knee M17.12 Osteochondral defect M95.8
[2025-01-19 15:25] VITALS: BP 105/68; PULSE 67; RESP 18; TEMP 36.9; O2SAT 97
== END 2025-01-19 15:28 | disposition home health service (06) ==
LOC: MEDSURG 14:41
PROVIDERS: Admitting Provider Specialist; PCP Family Medicine; Visit Provider Specialist
PROC: 8E0Y0CZ Robotic Assisted Procedure of Lower Extremity, Open Approach (ICD-10-PCS; CPT 27446; principal; 2025-01-18 10:45)
DX: M17.12 Unilateral primary osteoarthritis, left knee (principal); M95.8 Other specified acquired deformities of musculoskeletal system; K21.9 Gastro-esophageal reflux disease without esophagitis; I10 Essential (primary) hypertension; E11.9 Type 2 diabetes mellitus without complications
CPT/HCPCS: 27446; 20985; 36415; 36416; 51702; 73560; 80048; 82962; 85025; 96372; 97110; 97116; 97161; 97165; A4216; C1713; C1776 ×2; G0378; J0131; J0666; J0690; J1100; J1815; J2250; J2270; J2704; J2795; J3010; J3370; J3490; J7030; J9999

== ENCOUNTER 2025-02-09 05:00 | Outpatient (RCR) | payer OTHER, SELFPAY | END 2025-03-08 09:13 | disposition home or self-care (01) | LOC: SPT 05:00 | PROVIDERS: PCP Family Medicine; Visit Provider Specialist | DX: S83.242D Other tear of medial meniscus, current injury, left knee, subsequent encounter (principal); X58.XXXD Exposure to other specified factors, subsequent encounter | CPT/HCPCS: 97110 ==

== ENCOUNTER → 2025-03-05 10:36 | Outpatient (BNVA) | payer OTHER, SELFPAY | PROVIDERS: PCP Family Medicine; Visit Provider Nurse Practitioner | DX: Z96.659 Presence of unspecified artificial knee joint (principal); Z98.890 Other specified postprocedural states | CPT/HCPCS: 73560; 73565 ==

== ENCOUNTER → 2025-06-04 15:01 | Outpatient (BNVA) | payer OTHER, SELFPAY | PROVIDERS: PCP Family Medicine; Visit Provider Nurse Practitioner | DX: Z47.89 Encounter for other orthopedic aftercare (principal); Z96.659 Presence of unspecified artificial knee joint; M95.8 Other specified acquired deformities of musculoskeletal system | CPT/HCPCS: 73560; 73565 ==